=== PATIENT | male | born 1955 | race Caucasian/White ===

== ENCOUNTER 2018-08-06 10:12 | Observation (INO) | payer OTHER ==
[~2018-08-06] VITALS: Ht 172.7 cm; Wt 86.4 kg
[2018-08-06] VITALS (25 sets, daily range): BP systolic 121–151; BP diastolic 57–90; PULSE 60–76; RESP 11–24; Ht 172.7 cm; Wt 86.4 kg
[~2018-08-06 10:12] MED LIST: CEFAZOLIN 2 GM/50 ML (PMX) 50 ML IVPB ONE; LACTATED RINGER'S 1,000 ML IV* SCH; SUCCINYLCHOLINE CHLORIDE 100 MG/5 ML SYG IV ONE
[2018-08-06] MEDS ORDERED: SURGIFOAM POWDER 1 GM KIT ONE (10:24)
[2018-08-06] MEDS ORDERED: HEPARIN 1000 UNITS/ML 10 ML INJ ONE (10:25)
[2018-08-06] MEDS ORDERED: POLYMYXIN/BACITRACIN 1L IRRIG ONE (10:25)
[2018-08-06] MEDS ORDERED: CA CHLORIDE (GM) 10% 10 ML INJ ONE ×2 (10:25→10:26)
[2018-08-06] MEDS ORDERED: BUPIVACAINE 0.5%/EPI (SDV) 30 ML INJ ONE (10:25)
[2018-08-06] MEDS ORDERED: THROMBIN 5000 UNIT VIAL ONE (10:25)
[2018-08-06] MEDS ORDERED: SIMV40TA2 PO (10:43)
[2018-08-06] MEDS ORDERED: ASPI81TA52 PO (10:44)
--- NOTE | 2018-08-06 11:01 | PREAC ---
Date/Time of Note Date/Time of Note DATE: 08/06/18 TIME: 10:57 Anesthesia Eval and Record Evaluation Time Pre-Procedure Interview DATE: 08/06/18 TIME: 10:57 Age 62 Sex male NPO: 8 hrs Preoperative diagnosis Right L4-5 HNP w/ radiculopathy Planned procedure lumbar microdiscectomy R L4-L5 Past Medical History Past Medical History: Includes (tinnitus) Cardio: Dyslipidemia Surgery & Anesthesia Issues No known issue Meds Anticoagulation: No Beta Ever within 24 hr: No Reason Beta Ever not given: Pt. not on B-Ever Reported Medications Aspirin (Low Dose Aspirin) 81 Mg Tablet.dr, 81 MG PO DAILY, #30 TAB 08/06/18 Simvastatin* (Zocor*) 40 Mg Tablet, 40 MG PO QHS, #30 TAB 08/06/18 Current Medications Lactated Ringer's 1,000 ml @ 0 mls/hr Q0M IV* ; Start 08/06/18 at 09:00; Stop 08/06/18 at 16:00 Meds reviewed: Yes Allergies Coded Allergies: No Known Allergy (Unverified , 08/06/18) Allergies Reviewed: Yes Labs/Studies Labs Reviewed: Reviewed by anesthesiologist test: N/A Studies: ECG (nsr, PST or T wav changes), CXR (no active disease) Pre-procedure Exam Last vitals Vital Signs Date Temp Pulse Resp B/P (MAP) Pulse Ox O2 O2 Flow FiO2 Time Delivery Rate 08/06/18 98.1 62 16 129/64 96 Room Air 10:45 (85) Airway: Adequate mouth opening, Adequate thyromental dist Mallampati: Mallampati II Teeth: Abnormal Lung: Normal Heart: Normal ASA Physical Status ASA physical status: 2 Emergency: None Planned Anesthetic General/MAC: ETT Pre-operative Attestations Prior to commencing anesthesia and surgery, the patient was re-evaluated, there was verification of: *The patient's identity *The results of appropriate recent lab work and preoperative vital signs *The above evaluation not changing prior to induction *Anesthetic plan, risk benefits, alternative and complications discussed with patient/family; questions answered; patient/family understands, accepts and wishes to proceed. DEVORAH JERONIMO Aug 06, 2018 11:01
[2018-08-06] MEDS ORDERED: NEOSTIGMINE 3 MG/3 ML SYRINGE ONE (12:26)
[2018-08-06] MEDS ORDERED: GLYCOPYRROLATE 0.4 MG INJ ONE (12:26)
[2018-08-06] MEDS ORDERED: ROCURONIUM 50 MG INJ ONE (12:26)
[2018-08-06] MEDS ORDERED: PROPOFOL 20 ML ONE (12:26)
[2018-08-06] MEDS ORDERED: CEFAZOLIN 1 GM INJ ONE (12:26)
[2018-08-06] MEDS ORDERED: MIDAZOLAM 1 MG/ML 2 ML INJ ONE (12:27)
[2018-08-06] MEDS ORDERED: DEXAMETHASONE 4 MG/ML 5 ML INJ ONE (12:27)
[2018-08-06] MEDS ORDERED: FENTAnyl 50 MCG/ML VIAL ONE (12:27)
[2018-08-06] MEDS ORDERED: ONDANSETRON 4 MG INJ ONE (12:27)
[2018-08-06] MEDS ORDERED: MEPERIDINE 25 MG INJ IV PRN (12:30)
[2018-08-06] MEDS ORDERED: ALBUTEROL 0.083% (NEB) 2.5 MG/3 ML AMP HHN PRN (12:30)
[2018-08-06] MEDS ORDERED: FENTAnyl 50 MCG/ML VIAL IV PRN ×3 (12:30)
[2018-08-06] MEDS ORDERED: OXYCODONE/ACETAMINOPHEN (5/325) TAB PO PRN ×2 (12:30)
[2018-08-06] MEDS ORDERED: TRIMETHOBENZAMIDE 100 MG/ML VIAL IM PRN (12:30)
[2018-08-06] MEDS ORDERED: DIPHENHYDRAMINE 50 MG INJ IV PRN ×2 (12:30→14:30)
[2018-08-06] MEDS ORDERED: hydrALAzine 20 MG INJ IV PRN (12:30)
[2018-08-06] MEDS ORDERED: IPRATROPIUM (NEB) 0.5 MG/2.5 ML AMP HHN PRN (12:30)
[2018-08-06] MEDS ORDERED: LABETALOL HCL 20MG INJ IV PRN (12:30)
[2018-08-06] MEDS ORDERED: HYDROmorphONE 1 MG/5 ML IV SYRINGE IV PRN ×3 (12:30)
[2018-08-06] MEDS ORDERED: EPHEDrine SULFATE 50 MG/5 ML SYG IV PRN (12:30)
[2018-08-06] MEDS ORDERED: ONDANSETRON 4 MG INJ IV PRN ×2 (12:30→14:30)
[2018-08-06] MEDS ORDERED: MIDAZOLAM 1 MG/ML 2 ML INJ IV PRN (12:30)
[2018-08-06] MEDS: D5W-0.45 NACL + KCL 20 MEQ 1,000 ML IV SCH ×3 (14:26→23:36)
--- NOTE | 2018-08-06 14:26 | HPN ---
Date/Time of Note Date/Time of Note DATE: 08/06/18 TIME: 14:26 Interval H&P Admission Note Pt. seen H&P reviewed: No system changes CAR LUCAS PA-C Aug 06, 2018 14:26
--- NOTE | 2018-08-06 14:28 | SIPON ---
Date/Time of Note Date/Time of Note DATE: 08/06/18 TIME: 14:28 Operative Report Preoperative Diagnosis Right L4-5 disc herniation Postoperative Diagnosis Right L4-5 disc herniation Operation/Procedure Performed Right L4-5 discectomy Surgeon see signature line assistive technology specialist Marli Corona Anesthesia: general Estimated blood loss: 10 - 50 ml's Transfusion Required none Specimen L4-5 disc Grafts/Implants none Complications none JUAN JOSE REECE MD Aug 06, 2018 14:28
[2018-08-06] MEDS ORDERED: AL HYDROX/MG HYDROX/SIMETH 30 ML CUP PO PRN (14:30)
[2018-08-06] MEDS ORDERED: ACETAMINOPHEN 325 MG TAB PO PRN (14:30)
[2018-08-06] MEDS ORDERED: CYCLOBENZAPRINE 10 MG TAB PO PRN (14:30)
[2018-08-06] MEDS ORDERED: HYDROmorphONE 0.5 MG/0.5 ML SYG IV PRN (14:30)
[2018-08-06] MEDS ORDERED: NALOXONE (0.4 MG/ML) INJ IV PRN (14:30)
[2018-08-06] MEDS ORDERED: BISACODYL 10 MG SUPP PR PRN (14:30)
[2018-08-06] MEDS ORDERED: HYDROCODONE/APAP (5/325) TAB PO PRN (14:30)
[2018-08-06] MEDS ORDERED: CEPASTAT LOZENGE MT PRN (14:30)
[2018-08-06] MEDS ORDERED: DIPHENHYDRAMINE 25 MG CAP PO PRN (14:30)
--- NOTE | 2018-08-06 14:44 | PAC ---
Date/Time of Note Date/Time of Note DATE: 08/06/18 TIME: 14:43 Post-Anesthesia Notes Post-Anesthesia Note Last documented vital signs Vital Signs Date Temp Pulse Resp B/P (MAP) Pulse Ox O2 O2 Flow FiO2 Time Delivery Rate 08/06/18 98.2 14:36 08/06/18 62 16 129/64 96 Room Air 10:45 (85) Activity: WNL Respiratory function: WNL Cardiovascular function: WNL Mental status: Baseline Pain reasonably controlled: Yes Hydration appropriate: Yes Nausea/Vomiting absent: Yes Leroy Hatch M.D. Aug 06, 2018 14:43
--- NOTE | 2018-08-06 14:56 | OPR ---
DATE OF OPERATION: 08/06/2018 PREOPERATIVE DIAGNOSIS: Right L4 to L5 disk herniation with radiculopathy. POSTOPERATIVE DIAGNOSIS: Right L4 to L5 disk herniation with radiculopathy. PROCEDURES: 1. Right L4 to L5 hemilaminotomy, partial medial facetectomy, foraminotomy. 2. Right L4 to L5 lumbar microdiskectomy. 3. Lateral localizing film x2. 4. Use of intraoperative neuromonitoring. 5. Use of operative microscope. PRIMARY SURGEON: Vishal Serrano MD TELEPHONE SALES AGENT: Marli Corona PA-C NEED FOR PLASTERER FOREMAN: During this spinal surgical procedure, my assistant foreman was used to retract and protect the spinal nerves and dural sac. My assistant foreman also employed the suction catheters to ev acuate blood from the surgical field to improve visualization of the neural structures. The assistan t was medically necessary to facilitate the completion of the surgery in a safe and expeditious [facility]. [facility] regulations, as well as hospital bylaws, preclude the use of non-licensed [facility] care personnel, such as operating room technicians, to perform these functions. FINDINGS: Neuromonitoring at the start of the case revealed left L4 and L5 amplitude down 10%, right L4 down 40%, right L5 down 50%, right S1 down 30%. At the end of the case, nerve signals returned t o normal. ESTIMATED BLOOD LOSS: Less than 40 mL. DRAINS: None. SPECIMENS: L4 to L5 disk. COMPLICATIONS OF PROCEDURES: None. ANESTHESIOLOGIST: Leroy Hatch MD TYPE OF ANESTHESIA: General. INDICATIONS FOR PROCEDURE: This is a 62-year-old gentleman [facility] and a disk herniation at the L4 to L5 level. He failed nonoperative measures; therefor e, I recommended that he undergo the above procedure. Preoperatively, we discussed risks, benefits a nd alternatives. He understood and wished to proceed. DESCRIPTION OF PROCEDURE IN DETAIL: The patient was identified in the preoperative holding area, gi en Ancef antibiotic, taken to the operating room, where he was successfully placed under general anes thesia. Neuromonitoring leads were placed. Sequential devices were applied. Remote intraoperative neuromonitoring was performed by Dr. Mcgowan from 11:30 until 14:20 to include SSEP, MEP and EMG pe rformed by [employer]. The patient was placed on the operating table in prone position over a Omega frame. All bony prominences were well padded. The back was then prepped and draped in usual sterile fashion. I placed spinal needle and took lateral film to confirm the correct levels. Next, I injected Marcaine and epinephrine. Incision was then made over the L4 to L5 level. Incision was ta z[place] down to dorsal fascia which was incised with Bovie cautery. I then subperiosteally dissected the L4 lamina. Gabriela retractor was placed. Kerrison was placed under the L4 lamina and repeat lateral films were obtained to confirm the correct levels. Once this was confirmed, microscope was brought in and right-sided hemilaminotomy, partial medial facetectomy and foraminotomy was performed. Ligame ntum flavum was then sharply dissected. The patient has thickened ligamentum and hypertrophy of the facets and therefore, I had to decompress this area. Once this was done, I identified the annulus, m kaiser an annulotomy while my assistant foreman retracted the nerve roots. I performed a limited microdiskectom y removing extruded loose fragments. Once this was done, I irrigated the disk space and the wound. At this point, all nerve signals returned to normal. Valsalva maneuver was performed and there was n o leak of CSF. Hemostasis was achieved. I injected PPP and thrombin over the dura. Retractors were removed. Microscope was taken off the field. Deep fascia was closed with #1 Vicryl stitch. Subcut aneous tissue was closed with 2-0 Vicryl stitch. A 4-0 Monocryl closure was then performed. Dermabo nd was then applied. The patient was then awakened from anesthesia and taken to the recovery room in stable condition. Lap, sponge and instrument counts were correct x2. There were no apparent compli cations during the procedure. The patient will be admitted to the orthopedic anglin for routine postoperative care to include pain co ntrol, neurovascular checks, antibiotics and physical therapy. Dictated By: VISHAL SERRANO MD BB/ELVIS Conf#: [id number] DID#: [id number] CC: GURMEET WATSON MD;*EndCC*
[2018-08-06] MEDS: CEFAZOLIN 1 GM/50 ML (PMX) 50 ML IVPB SCH ×2 (15:21→22:47)
--- NOTE | 2018-08-06 17:52 | SIPON ---
Date/Time of Note Date/Time of Note DATE: 08/06/18 TIME: 17:51 Operative Report Preoperative Diagnosis Left L3-4 herniation Postoperative Diagnosis Left L3-4 herniation Operation/Procedure Performed Left L3-4 microdiscectomy Surgeon see signature line collections assistant Marli Corona Anesthesia: general Estimated blood loss: 10 - 50 ml's Transfusion Required none Specimen L3-4 disc Grafts/Implants none Complications none JUAN JOSE REECE MD Aug 06, 2018 17:52
--- NOTE | 2018-08-06 20:14 | CONS ---
DATE OF ADMISSION: 08/06/2018 DATE OF CONSULTATION: TYPE OF CONSULTATION: Medical. Thank you, Dr. Serrano, for asking me to participate in medical management of this patient. REASON FOR CONSULTATION: Hyperlipidemia. HISTORY OF PRESENT ILLNESS: This 62-year-old man is now postop a lumbar spine surgery. He underwent a L3 to L4 microdiskectomy on the left. He was having low back pain with some radiation down his ri ght leg. Lumbar spine surgery by Dr. Serrano. He underwent a right L4 to L5 diskectomy. Preopera tively, he was having right back pain with radiation down his right leg. He had a right lumbar spine radiculopathy that failed medical management. The patient is now awake and alert. He does have sli ght nausea, but no vomiting. His is in the room with him. PAST MEDICAL HISTORY: Remarkable for hyperlipidemia, plantar fasciitis. CURRENT MEDICATIONS: Included: 1. Simvastatin 40 mg a day. 2. Aspirin 81 mg a day, which was discontinued preoperatively. PAST SURGICAL HISTORY: Appendectomy, wrist cyst removal, bilateral foot surgery for plantar fasciiti s. SOCIAL HISTORY: The patient is a nonsmoker. He drinks alcohol rarely. ALLERGIES: HE HAS NO KNOWN DRUG ALLERGIES. PHYSICAL EXAMINATION: GENERAL: At this time reveals a well-developed man in no apparent distress. VITAL SIGNS: Temperature 98.1, pulse is 66, respirations 18, blood pressure 134/65, O2 saturation of 98% on 2-liter nasal cannula. HEENT: Head is normocephalic. Eyes: Extraocular muscles are intact. Nose and mouth are normal. NECK: Supple. No neck vein distention. LUNGS: Clear to auscultation. HEART: Regular rhythm. No murmurs, gallops or rubs. ABDOMEN: Soft, nontender. EXTREMITIES: No peripheral edema. IMPRESSION: This patient is now postop a lumbar spine surgery, which included a right L4 to L5 level diskectomy. The patient was having right lumbar spine radiculopathy preoperatively. He is awake an d alert and is doing well. His pain is controlled with current medication. He denies chest pain or shortness of breath. PLAN: 1. Resume routine medications. 2. Start lumbar spine surgery protocol. 3. Check labs in the morning. 4. I will follow the patient along with you. Dictated By: GURMEET WATSON MD ND/NTS Conf#: [id number] DID#: [id number] CC: JUAN JOSE SERRANO MD;*End*
[2018-08-06] MEDS: DOCUSATE SODIUM 100 MG CAP PO SCH (20:52)
[2018-08-06] MEDS ORDERED: ATORVASTATIN 20 MG TAB PO SCH (21:00)
[2018-08-07 00:27] VITALS: BP 138/66; PULSE 91
[2018-08-07] MEDS: D5W-0.45 NACL + KCL 20 MEQ 1,000 ML IV SCH (03:38)
[2018-08-07] MEDS: HYDROCODONE/APAP (5/325) TAB PO PRN ×2 (06:12→11:50)
[2018-08-07] MEDS: CEFAZOLIN 1 GM/50 ML (PMX) 50 ML IVPB SCH (06:12)
[2018-08-07 08:29] VITALS: BP 107/56; PULSE 73; RESP 18
[2018-08-07] MEDS: DOCUSATE SODIUM 100 MG CAP PO SCH (09:49)
--- NOTE | 2018-08-07 11:47 | DS ---
Date/Time of Note Date/Time of Note DATE: 08/07/18 TIME: 11:47 Discharge Summary Admission/Discharge Info Admit Date/Time Aug 06, 2018 at 2:29 pm Discharge Date/Time August 07 Discharge Diagnosis Status post lumbar microdiscectomy Patient Condition: Good Procedures Lumbar microdiscectomy Hospital Course Patient was admitted to the orthopedic anglin after undergoing a lumbar microdiscectomy. His postoperative course was uncomplicated. By postoperative day 1 he was deemed stable for discharge with follow-up arranged with the undersigned Home Meds Reported Medications Aspirin (Low Dose Aspirin) 81 Mg Tablet.dr, 81 MG PO DAILY, #30 TAB 08/06/18 Simvastatin* (Zocor*) 40 Mg Tablet, 40 MG PO QHS, #30 TAB 08/06/18 Primary Care Provider Not On Staff Doctor Pending Labs Laboratory Tests Test 08/07/18 04:30 08/07/18 08:56 White Blood Count 15.6 10^3/ul (4.8-10.8) Red Blood Count 5.03 10^6/ul (4.70-6.10) Hemoglobin 14.3 g/dl (14.0-18.0) Hematocrit 42.7 % (42.0-52.0) Mean Corpuscular Volume 84.9 fl (82.0-101.0) Mean Corpuscular Hemoglobin 28.4 pg (29.0-33.0) Mean Corpuscular 33.5 g/dl (32.0-37.0) Hemoglobin Concent Red Cell Distribution Width 12.7 % (11.5-14.5) Platelet Count 246 10^3/UL (140-415) Mean Platelet Volume 11.1 fl (7.4-10.4) Immature Granulocytes % 0.600 % (0.001-0.429) Neutrophils % 86.7 % (39.0-77.0) Lymphocytes % 6.3 % (15.0-51.0) Monocytes % 6.1 % (0.0-11.0) Eosinophils % 0.0 % (0.0-7.0) Basophils % 0.3 % (0.0-2.0) Nucleated Red Blood Cells % 0.0 /100WBC (0.0-0.0) Immature Granulocytes # 0.090 10^3/ul (0.0-0.031) Neutrophils # 13.5 10^3/ul (1.6-7.5) Lymphocytes # 1.0 10^3/ul (0.8-2.9) Monocytes # 1.0 10^3/ul (0.3-0.9) Eosinophils # 0.0 10^3/ul (0.0-0.5) Basophils # 0.0 10^3/ul (0.0-0.1) Nucleated Red Blood Cells # 0.0 10^3/ul (0.0-0.0) Sodium Level 142 mmol/L (135-144) Potassium Level 4.5 mmol/L (3.5-5.1) Chloride Level 105 mmol/L (97-110) Carbon Dioxide Level 25 mmol/L (21-31) Anion Gap 12 (5-13) Blood Urea Nitrogen 15 mg/dl (7-20) Creatinine 0.74 mg/dl (0.61-1.24) Est Glomerular Filtrat > 60 mL/min (>60) Rate mL/min Glucose Level 168 mg/dl (70-220) Calcium Level 9.6 mg/dl (8.4-10.2) Magnesium Level 2.0 mg/dl (1.7-2.5) Lab Scanned Report REFERENCE LAB [id number] JUAN JOSE REECE MD Aug 07, 2018 11:47 am
--- NOTE | 2018-08-07 13:15 | CONS ---
Assessment/Plan Assessment/Plan Hospital Course (Demo Recall) 1. Sonali is now 1 day postop a lumbar spine surgery for right leg radiculopathy. He is feeling better today and his pain is under control. The tingling that he had preoperatively in the right foot has resolved. His vital signs and laboratory tests are acceptable. He is afebrile. He will start physical therapy as tolerated. Consultation Date/Type/Reason Admit Date/Time Aug 06, 2018 at 14:29 Initial Consult Date Date/Time of Note DATE: 08/07/18 TIME: 13:13 24 HR Interval Summary Free Text/Dictation Sonali is now 1 day postop a lumbar spine surgery. He is feeling better. His back pain is controlled with medication. The tingling in his right leg has resolved. Constitutional: no complaints, improved Exam/Review of Systems Exam Vitals Vital Signs Date Temp Pulse Resp B/P (MAP) Pulse Ox O2 O2 Flow FiO2 Time Delivery Rate 08/07/18 98.9 73 18 107/56 98 08:29 (73) 08/06/18 Nasal 18:32 Cannula 08/06/18 2.0 15:05 Intake and Output 08/06/18 08/06/18 08/07/18 1515:00 23:00 07:00 IntakeIntake Total 1900 ml 300 ml 1550 ml OutputOutput Total 50 ml 1700 ml BalanceBalance 1850 ml 300 ml -150 ml Constitutional: alert, oriented, well developed Respiratory: clear to auscultation, normal air movement Cardiovascular: regular rate and rhythm Gastrointestinal: soft, non-tender Musculoskeletal: nl extremities to inspection Results Result Diagram: 08/07/18 0430 08/07/18 0430 Results 24hrs Laboratory Tests Test 08/07/18 04:30 08/07/18 08:56 White Blood Count 15.6 H Red Blood Count 5.03 Hemoglobin 14.3 Hematocrit 42.7 Mean Corpuscular Volume 84.9 Mean Corpuscular Hemoglobin 28.4 L Mean Corpuscular Hemoglobin Concent 33.5 Red Cell Distribution Width 12.7 Platelet Count 246 Mean Platelet Volume 11.1 H Immature Granulocytes % 0.600 H Neutrophils % 86.7 H Lymphocytes % 6.3 L Monocytes % 6.1 Eosinophils % 0.0 Basophils % 0.3 Nucleated Red Blood Cells % 0.0 Immature Granulocytes # 0.090 H Neutrophils # 13.5 H Lymphocytes # 1.0 Monocytes # 1.0 H Eosinophils # 0.0 Basophils # 0.0 Nucleated Red Blood Cells # 0.0 Sodium Level 142 Potassium Level 4.5 Chloride Level 105 Carbon Dioxide Level 25 Anion Gap 12 Blood Urea Nitrogen 15 Creatinine 0.74 Est Glomerular Filtrat Rate mL/min > 60 Glucose Level 168 Calcium Level 9.6 Magnesium Level 2.0 Lab Scanned Report REFERENCE LAB Medications Medication Current Medications Potassium Chloride/Dextrose/ Sod Cl 1,000 ml @ 100 mls/hr Q10H IV Last administered on 08/07/18 03:38; Admin Dose 100 MLS/HR; Start 08/06/18 at 14:26 Acetaminophen/ Hydrocodone Bitart ([place] (5/325)) 1 tab Q4H PRN PO .PAIN 1-5 Last administered on 08/06/18at 20:52; Admin Dose 1 TAB; Start 08/06/18 at 14:30 Acetaminophen/ Hydrocodone Bitart ([place] (5/325)) 2 tab Q4H PRN PO .PAIN 6-10 Last administered on 08/07/18at 11:50; Admin Dose 2 TAB; Start 08/06/18 at 14:30 Hydromorphone HCl (Dilaudid) 0.2 mg Q1H PRN IV .BREAKTHROUGH PAIN Last administered on 08/06/18 18:05; Admin Dose 0.2 MG; Start 08/06/18 at 14:30 Ondansetron HCl (Zofran Inj) 4 mg Q6H PRN IV NAUSEA/VOMITING Last administered on 08/06/18at 20:49; Admin Dose 4 MG; Start 08/06/18 at 14:30 Bisacodyl (Dulcolax Supp) 10 mg DAILY PRN [place] .CONSTIPATION; Start 08/06/18 at 14:30 Docusate Sodium (Colace) 100 mg BID PO Last administered on 08/07/18 09:49; A dmin Dose 100 MG; Start 08/06/18 at 21:00 Al Hydrox/Mg Hydrox/Simethicone (Mag-Al Plus) 15 ml Q6H PRN PO .CONSTIPATION/DYSPEPSIA; Start 08/06/18 at 14:30 Acetaminophen (Tylenol Tab) 650 mg Q4H PRN PO GARCIA OR TEMP GREATER THAN 101.3F; Start 08/06/18 at 14:30 Cyclobenzaprine HCl (Flexeril) 5 mg TID PRN PO .MUSCLE SPASM Last administered on 08/06/18at 20:53; Admin Dose 5 MG; Start 08/06/18 at 14:30 Phenol (Cepastat Lozenge) 1 lozenge PRN PRN [place] .SORE THROAT; Start 08/06/18 at 14:30 Diphenhydramine HCl (Benadryl) 25 mg Q6H PRN PO .ITCHING; Start 08/06/18 at 14:30 Diphenhydramine HCl (Benadryl) 25 mg Q6H PRN IV .ITCHING; Start 08/06/18 at 14:30 Naloxone HCl (Narcan) 0.2 mg Q2M PRN IV .RR 8 BREATHS/MIN OR LESS; Start 08/06/18 at 14:30 Atorvastatin Calcium (Lipitor) 20 mg HS PO Last administered on 08/06/18at 20:52; Admin Dose 20 MG; Start 08/06/18 at 21:00 GURMEET WATSON MD Aug 07, 2018 13:15
== END 2018-08-07 13:41 | disposition home or self-care (01) ==
LOC: SDS 10:12 → EDSEX 12:00 → EDSTATUS 12:00 → REC 14:29 → SDS 14:29 → MS1 16:03
PROVIDERS: ADMIT Specialist; ATTEND Specialist
DX: M51.16 Intervertebral disc disorders with radiculopathy, lumbar region (principal); E78.5 Hyperlipidemia, unspecified; Z79.82 Long term (current) use of aspirin
CPT/HCPCS: 63030; 72020; 80048; 83735; 85025; 86999; 88304; 97116; 97161; 99217; G0378; J0690; J1100; J1170; J1644; J2250; J2405; J2710; J3010; J3480